=== PATIENT | male | born 1990 | race Caucasian/White ===

== ENCOUNTER 2022-06-13 19:18 | Emergency (ER) | payer BC, MEDICAID ==
[~2022-06-13] VITALS: Ht 177.8 cm; Wt 92.0 kg
[2022-06-13 19:25] VITALS: BP 161/95
[2022-06-13] MEDS ORDERED: OFLO5DRO4 RIGHT EAR (22:46)
[2022-06-13] MEDS ORDERED: MELA5TAB19 MT (22:46)
== END 2022-06-13 23:06 | disposition home or self-care (01) ==
LOC: ER 19:18
DX: H60.91 Unspecified otitis externa, right ear (principal); I10 Essential (primary) hypertension; H93.11 Tinnitus, right ear
CPT/HCPCS: 99283

== ENCOUNTER 2022-10-06 20:02 | Emergency (ER) | payer BC ==
[~2022-10-06] VITALS: Ht 177.8 cm; Wt 95.0 kg
[~2022-10-06 20:02] MED LIST: MELA5TAB19 MT; OFLO5DRO4 RIGHT EAR
[2022-10-06] MEDS ORDERED: SODIUM CHLORIDE 0.9% 1,000 ML IV ONE (22:30)
[2022-10-06] MEDS ORDERED: METOCLOPRAMIDE HCL 10MG/2ML VIAL IV ONE (22:30)
[2022-10-06 23:14] LABS: BASOPHILS % 0.3 % (0.0-2.0); EOSINOPHILS % 0.1 % (0.0-5.0); HEMATOCRIT. 49.4 % (42.0-52.0); HEMOGLOBIN. 16.1 g/dL (14.0-18.0); LYMPHOCYTES % 9.3 % (20.0-50.0); MEAN CORPUSCULAR HEMOGLOBIN 30.7 pg (28.0-32.0); MEAN CORPUSCULAR VOLUME 94.1 fL (80.0-94.0); MEAN PLATELET VOLUME 8.2 fl (7.4-10.4); NEUTROPHILS % 85.3 % (40.0-76.0); PLATELET 322 x1000/uL (130-400); RED BLOOD CELL COUNT 5.26 mill/uL (4.7-6.1); RED CELL DISTRIBUTION WIDTH 13.2 % (11.6-14.6)
[2022-10-06 23:25] LABS: CHLORIDE 108 mEq/L (98-107)
[2022-10-06 23:33] LABS: ETHANOL BLOOD < 10 mg/dL
[2022-10-07 07:45] VITALS: BP 147/69
[2022-10-07] MEDS ORDERED: MECLIZINE 25MG TABLET PO ONE (08:00)
[2022-10-07] MEDS ORDERED: ONDANSETRON HCL 4MG/2ML INJ IV ONE (08:00)
[2022-10-07] MEDS ORDERED: ONDANSETRON HCL 4MG TABLET PO ONE (08:15)
[2022-10-07] MEDS ORDERED: ONDA4TAB50 PO (08:55)
[2022-10-07] MEDS ORDERED: MECL-159 PO (08:55)
== END 2022-10-07 09:20 | disposition home or self-care (01) ==
LOC: ER 20:02
DX: H81.399 Other peripheral vertigo, unspecified ear (principal)
CPT/HCPCS: 36415; 70450; 80053; 80320; 85025; 99284; J8597; Q0162; J2405; J7030; G0480

== ENCOUNTER 2022-11-18 17:56 | Emergency (ER) | payer BC ==
[~2022-11-18] VITALS: Ht 177.8 cm; Wt 95.4 kg
[~2022-11-18 17:56] MED LIST changes: +MECL-159 PO; +ONDA4TAB50 PO
[2022-11-18 18:03] VITALS: BP 137/88
[2022-11-18] MEDS ORDERED: MECLIZINE 12.5MG TABLET PO NR (20:00)
[2022-11-18] MEDS ORDERED: MECLIZINE 25MG TABLET PO ONE (20:00)
[2022-11-18] MEDS ORDERED: MECL-159 MT (22:35)
[2022-11-18] MEDS ORDERED: LORAZEPAM 2MG/ML CPJ IM ONE (22:45)
[2022-11-18] MEDS ORDERED: LORAZEPAM 2MG/ML CPJ IM PRN (22:45)
== END 2022-11-19 00:12 | disposition home or self-care (01) ==
LOC: ER 17:56
DX: R42 Dizziness and giddiness (principal)
CPT/HCPCS: 99282; J8597